=== PATIENT | male | born 1950 | race Caucasian/White ===

== ENCOUNTER 2016-07-21 15:21 | Outpatient (RCR) | payer MEDICARE, BC | END 2016-09-23 10:37 | disposition home or self-care (01) | LOC: PT 15:21 | DX: M25.511 Pain in right shoulder (principal) ==

== ENCOUNTER → 2017-02-16 | Outpatient (CLI) | payer MEDICARE, BC | LOC: LAB 07:09 | DX: Z13.6 Encounter for screening for cardiovascular disorders (principal); Z12.5 Encounter for screening for malignant neoplasm of prostate; Z13.1 Encounter for screening for diabetes mellitus; E07.9 Disorder of thyroid, unspecified ==

== ENCOUNTER → 2017-08-26 | Outpatient (CLI) | payer MEDICARE, BC | LOC: LAB 10:58 | PROVIDERS: Family Medicine | DX: E07.9 Disorder of thyroid, unspecified (principal); Z88.1 Allergy status to other antibiotic agents ==

== ENCOUNTER → 2017-12-25 | Outpatient (CLI) | payer MEDICARE, BC | LOC: LAB 12:05 | PROVIDERS: Family Medicine | DX: E07.9 Disorder of thyroid, unspecified (principal) ==